=== PATIENT | male | born 1970 | race Caucasian/White ===

== ENCOUNTER 2020-02-26 10:24 | Emergency (ER) | payer MEDICARE, SELFPAY ==
[2020-02-26 10:39] VITALS: BP 137/91; PULSE 95; RESP 15; TEMP 36.4; O2SAT 95; BMI 31.3
--- NOTE | 2020-02-26 10:48 | ED_ITS ---
HPI - Male Genitourinary General: Chief complaint: Urogenital-Male Stated complaint: Urinary issues? Prostate perhaps. Something stuck Time Seen by Provider: 02/26/20 10:37 History of Present Illness: HPI Narrative: Patient is a 49-year-old male who comes to the ED with urogenital complaint. Patient says that for the past week he has pain the head of penis when he urinates and his urine stream sprays everywhere. Patient feels like there is something obstructing the uroflow towards the end of the penis. He says occasionally in the mornings when he wakes up and urinates he will have a little drip of red blood come out from the meatus of penis. He says he is able to urinate and does not have any urine retention issues. His main complaint is the pain that occurs when a urinates and that his urine stream sprays everywhere. Denies any abdominal pain, fever, chills, shortness of breath, chest pain or bowel symptoms. Associated symptoms: Reports dysuria; Deny hematuria, nausea or vomiting Review of Systems Const: Denies: fever(s), chills or fatigue Eyes: Denies: change in vision or eye discomfort ENMT: Denies: throat pain, odynophagia, nasal discharge or nasal congestion Card: Denies: chest pain, palpitations, edema, swelling of feet/ankles, dyspnea on exertion or orthopnea Resp: Denies: dyspnea, productive cough or non-productive cough GI: Denies: abdominal pain, nausea, vomiting, diarrhea, constipation or hematochezia : Reports: difficulty urinating (urine stream sprays everywhere), dysuria, change in urine stream (urine stream sprays everywhere) and other (drip of red blood that comes out of the meatus occasionally in the mornings.); Denies: flank pain or hematuria Musc: Denies: neck pain, back pain or extremity swelling Skin/Breast: Denies: rash or new lesions Neuro: Denies: headache(s), numbness in extremities or weakness in extremities Physical Exam Const: COMMON NORMALS: no acute distress, patient oriented x3 and alert GENERAL APPEARANCE: cooperative and comfortable HENMT: COMMON NORMALS: normocephalic HEAD & SCALP: normocephalic MOUTH: Normal oral and palatal mucosa present THROAT: posterior oropharynx normal and uvula midline Neck/C-Spine: COMMON NORMALS: supple GENERAL: Yes normal visual inspection Resp: COMMON NORMALS: normal respiratory effort, No retractions, No use of accessory muscles and clear to auscultation bilaterally EFFORT & INSPECTION: Yes able to speak in complete sentences, No tachypneic and No labored AUSCULTATION: clear to auscultation bilaterally Cardio: COMMON NORMALS: regular rate, regular rhythm, S1 normal heart sound present, S2 normal heart sound present, No gallops present (Cardio), No clicks present (Cardio), No murmurs present (Cardio) and Peripheral pulses 2+ throughout RATE: regular rate RHYTHM: regular rhythm HEART SOUNDS: S1 normal heart sound present and S2 normal heart sound present PERIPHERAL PULSES: Peripheral pulses 2+ throughout GI: COMMON NORMALS: Normal to inspection, nondistended, normoactive bowel sounds present, Soft to palpation, non-tender and no masses PALPATION: Yes Soft to palpation : COMMON NORMALS: Yes no CVA tenderness BLADDER/KIDNEY EXAM: Yes no CVA tenderness PENIS: normal penis and circumcised MEATUS: no meatla discharge, No Blood at meatus present, stenotic (Meatus opening appears to be closing up, erythema and swelling. Possible scar tissue developing) and Erythema at meatus Back/Pelvis: COMMON NORMALS: no CVA tenderness Extremity: COMMON NORMALS: normal to inspection Neuro: COMMON NORMALS: patient oriented x3 and moves all extremities SENSORIUM/ORIENTATION: Yes alert Skin: GENERAL SKIN EXAM: dry skin Course Consultations: Consultation #1: I contacted Dr. Wilson and told about patient case. He recommended that I put patient on an antibiotic and tell him he can use triple antibiotic ointment cream on the meatus opening. He thinks patient should come in this week to his office and is probably going to need a dilation. Time: 11:51 Vital Signs: Vital signs: Vital Signs Temperature 97.6 F 02/26/20 10:39 Pulse Rate 95 02/26/20 10:39 Respiratory Rate 15 02/26/20 10:39 Blood Pressure 137/91 02/26/20 10:39 Pulse Oximetry 95 02/26/20 10:39 MDM - Male MDM Narrative: Medical decision making narrative: Patient is a 49-year-old male comes to the ED with change in urine stream and dysuria. Exam shows's erythema and swelling at the meatus. It appears that there is scar tissue forming around meatus. UA .negative for UTI. I discussed patient case with Dr. Wilson and he is very familiar with patient. He told me to have patient follow-up with him in his office early next week and to put him on an antibiotic. He also told me to tell patient to put triple antibiotic ointment on head of penis. Placed an order with case management as well to make sure patient get set up with Dr. Wilson early next week. Told patient he can return to ED if he is having any urinary retention problems and told him to take antibiotic and apply triple antibiotic ointment on the head of penis. Patient understood agree with plan. Lab Data: Attestation: I reviewed the patient's lab results. Labs: Lab Results 02/26/20 Range/Units 11:09 Urine Color Yellow (Yellow) Urine Appearance Sl hazy (CLEAR) Urine pH 7.0 (5-7) Ur Specific Gravit y 1.010 (1.005-1.030) Urine Protein Neg (Negative) Urine Glucose (UA) Norm (Normal) Urine Ketones Negative (Negative) Urine Blood 3+ H (Negative) Urine Nitrate Negative (Negative) Urine Bilirubin Neg (Negative) Urine Urobilinogen 1 H (Negative) mg/dL Ur Leukocyte Moon ase Trace H (Negative) Urine RBC 50-80 H (0-2) /hpf Urine WBC 15-25 H (0-5) /hpf Ur Squamous Epith Cells 5-10 H (0-5) /hpf Amorphous Sediment Not Reportable Urine Bacteria Trace (NONE) /hpf Urine Mucus Trace /hpf Discharge Plan Discharge Patient Disposition: Home Clinical Impression: Urethritis Condition: Stable Prescriptions: New Bactrim DS 800-160 mg tablet 1 tab PO BID 5 Days Qty: 10 RF: 0 Discharge Orders: Discharge Order (Routine); Ordered 02/26/20 Ordered By: Stanley Elam Referrals: Javier Diallo MD [Primary Care Provider] - Discharge Diet: Regular Discharge Activity: Resume usual activity Patient Instructions: Urethritis - Male Activity Restrictions/Additional Instructions: Follow-up with medical provider as directed. Case management will call you in the next several days to set up an appointment to see Dr. Wilson early this coming week. Take medications as prescribed. Apply triple antibiotic ointment on head of penis. Return to the ER or your medical provider if condition worsens. Please read and understand discharge instructions. If any questions, please ask. Discharge Date/Time: 02/26/20 12:15 Coding Level of Care Code ED Wheel And Pinion Inspector for Chg Fwd Exam Comprehensive
[2020-02-26 11:39] LABS: Bilirubin Urine Neg (Negative); Blood Urine 3+ (Negative); Glucose Urine UA Norm (Normal); Ketones Urine Negative (Negative); Nitrate Urine Negative (Negative); Protein Urine Neg (Negative); Urine Appearance SL Hazy (CLEAR); Urine Color Yellow (Yellow); Urobilinogen Urine 1 mg/dL (Negative)
[2020-02-26 11:40] LABS: Add Urine Culture? Yes; Bacteria Urine TRACE /hpf; Leukocyte Esterase Urine Trace (Negative); Mucus Urine TRACE /hpf; RBC Urine 50-80 /hpf (0-2); WBC Urine 15-25 /hpf (0-5)
--- NOTE | 2020-02-28 09:35 | DCPLANNER ---
probation manager had message to schedule a follow up appointment for patient with Dr. Wilson. probation manager called the office of Dr. Wilson, spoke with Morena, gave clinic patients information. probation manager was told that patients information would be printed and reviewed. Clinic will call patient with appointment information.
--- NOTE | 2020-02-29 11:35 | DCPLANNER ---
Patient has a follow up appointment scheduled for , March 02, 2020 at 8:[address] Wilson. Clinic will call patient with appointment information.
--- NOTE | 2020-04-28 12:28 | DCPLANNER ---
Patient did not attend appointment scheduled for 03.02.[address] Wilson
== END 2020-02-26 12:15 | disposition home or self-care (01) ==
PROVIDERS: Emergency Provider Physician Assistant; PCP Family Medicine
DX: N34.2 Other urethritis (principal)
CPT/HCPCS: 12345; 81001; 87086; 99281; 99282

== ENCOUNTER 2021-07-07 13:45 | Emergency (ER) | payer OTHER, SELFPAY ==
[2021-07-07 13:57] VITALS: BP 136/81; PULSE 77; RESP 18; TEMP 36.8; O2SAT 97; BMI 31.9
[2021-07-07 14:08] VITALS: BP 136/81; PULSE 77; RESP 18; TEMP 36.8; O2SAT 97
--- NOTE | 2021-07-07 14:34 | ED_ITS ---
HPI - Male Genitourinary General: Chief complaint: Urogenital-Male Stated complaint: Urinary problems Time Seen by Provider: 07/07/21 14:03 History of Present Illness: Patient states he had problems urinating for the last year. Was told he had an STI a year ago and he said this was included on instruction sheet even though there is no laboratory values at substantiate this. Patient said he is not had sex for 6 years. Patient said his urine does shoot all over the place and is just dribbling here for the last weeks, has history of stones. Associated symptoms: Reports hematuria and urinary incontinence; Deny nausea or vomiting Review of Systems Const: Denies: fever(s), chills or body aches Eyes: Denies: eye discomfort ENMT: Denies: throat pain Card: Denies: chest pain Resp: Denies: dyspnea GI: Denies: abdominal pain, nausea or vomiting : Reports: difficulty urinating, urinary frequency, urinary urgency, urinary hesitancy, urinary dribbling, difficulty starting urination, change in urine stream, urinary incontinence and hematuria; Denies: penile discharge, testicular pain, testicular mass or scrotal swelling Skin/Breast: Denies: rash Neuro: Denies: headache(s) Psych: Denies: depression or suicidal ideation PFSH ED PFSH: Family History (Updated 02/29/20 @ 07:38 by JEFFREY Knight) Other CAD (coronary artery disease) CHF (congestive heart failure) Hypertension Stroke Social History (Updated 02/29/20 @ 07:38 by JEFFREY Knight) Smoking and tobacco status: former smoker Alcohol intake: never Adopted: No Caregiver/support person: No Lives independently: No Household members: spouse Marital status: Current occupational status: disabled Physical Exam Const: COMMON NORMALS: no acute distress, patient oriented x3 and alert HENMT: COMMON NORMALS: normocephalic and external ears normal HEAD & SCALP: normocephalic EXTERNAL EAR: Yes external ears normal Eye: COMMON NORMALS: EOMs intact bilaterally Neck/C-Spine: COMMON NORMALS: no JVD Resp: COMMON NORMALS: normal respiratory effort and No use of accessory muscles Cardio: COMMON NORMALS: no JVD GI: INSPECTION: Yes normal to inspection : MALE GROIN/PERINEUM EXAM: No Genital lesions present PENIS: normal penis, uncircumcised, no condylomata, not edematous, not erythematous, no pustules, foreskin retracts, no phimosis, no swelling and No Genital lesions present MEATUS: stenotic Extremity: COMMON NORMALS: normal to inspection and full ROM Neuro: COMMON NORMALS: patient oriented x3 SENSORIUM/ORIENTATION: Yes alert Psych: COMMON NORMALS: mental status grossly normal Skin: COMMON NORMALS: no rashes or lesions noted GENERAL SKIN EXAM: no rashes or lesions noted Course Vital Signs: Vital signs: Vital Signs Temperature 98.2 F 07/07/21 14:08 Pulse Rate 77 07/07/21 14:08 Respiratory Rate 18 07/07/21 14:08 Blood Pressure 136/81 07/07/21 14:08 Pulse Oximetry 97 07/07/21 14:08 MDM - Male Medical Decision Making Urinary meatus scar tissue and/or obstruction. I used a Urojet in the meatus into the penis injecting half the syringe. There was difficulty getting it first. Nurses tried to Villavicencio cath but could not even insert the tip of the catheter in the meatus at all. I did have some difficulty given the tip of the Urojet in but was finally able to get past what possibly with scar tissue. But #16 Villavicencio coud? in with some difficulty given through the possible scar tissue but was finally able to advance the daily and inflated the balloon with 10 mils and did obtain urine. Patient discomfort from the lidocaine and the catheter. Patient has had biopsy of the meatus x2 and possibly scar tissue was from that he has been having difficulty urinating for the last year and is got to the point the last few weeks where he cannot urinate well and he takes about 30 to 45 minutes to empty his bladder. Patient is follow-up Dr. Wilson this week. Discharge Plan Discharge Patient Disposition: Home Clinical Impression: Dysuria, Acute retention of urine, Abnormality of urethral meatus Condition: Stable Prescriptions: New Bactrim DS 800-160 mg tablet 1 tab PO BID 10 Days Qty: 20 0RF Flomax 0.4 mg capsule 0.8 mg PO DAILY Qty: 14 0RF hydrocodone-acetaminophen 5-325 mg tablet 1 tab PO TID PRN (Reason: pain) Qty: 14 0RF Discharge Orders: Discharge ED (Routine); Ordered 07/07/21 Ordered By: Lambert Hernandez Referrals: Javier Diallo MD [Primary Care Provider] - Discharge Diet: Usual diet Discharge Activity: Resume usual activity Patient Instructions: Enlarged Prostate (BPH) (ED), Villavicencio Catheter Placement and Care (ED), Dysuria (ED) Activity Restrictions/Additional Instructions: Follow-up with medical provider as directed. Take medications as prescribed. Return to the ER or your medical provider if condition worsens. Please read and understand discharge instructions. If any questions ask please. Hospital will contact you with appointment for Dr. Wilson's office. Coding Level of Care Code ED Customer Service Leader for Gloria Fwd Exam Comprehensive
[2021-07-07] MEDS: lidocaine 2% Urojet 20 mL TOPICAL (15:03)
[2021-07-07] MEDS: HYDROcodone-acetaminophen 7.5-325 mg Tablet 1 TAB PO (15:10)
[2021-07-07 15:32] LABS: Add Urine Microscopic? YES; Bilirubin Urine Neg (Negative); Blood Urine Neg (Negative); Glucose Urine UA Norm (Normal); Ketones Urine Negative (Negative); Leukocyte Esterase Urine Trace (Negative); Nitrate Urine Negative (Negative); Protein Urine Neg (Negative); Specific Gravity, Urine 1.005 (1.005-1.030); Urine Appearance Clear (CLEAR); Urine Color Yellow (Yellow); Urobilinogen Urine Norm (Negative); pH Urine 7 (5-7)
[2021-07-07 15:34] LABS: Add Urine Culture? No; Bacteria Urine TRACE /hpf; RBC Urine 0-4 /hpf (0-2); Squamous Epithelial Cell Urine RARE /hpf (0-5); WBC Urine 0-4 /hpf (0-5)
--- NOTE | 2021-07-09 12:07 | DCPLANNER ---
Addendum entered by Luciana Collazo 07/26/21 08:39: Patient had a follow up appointment scheduled for 07.10.[address] Wilson - patient did attend appointment. Addendum entered by Luciana Collazo 07/10/21 06:04: Patient has a follow up appointment scheduled for Saturday, July 10, 2021 at 4:[address] Wilson. Clinic will call patient with appointment information. Original Note: production reproduction manager had message to schedule a follow up appointment for patient with Dr. Wilson. production reproduction manager emailed patients information to Michael Berg and Julie in the office of Dr. Wilson. Patients information will be printed and reviewed. Clinic will call patient with appointment information.
== END 2021-07-07 15:16 | disposition home or self-care (01) ==
PROVIDERS: Emergency Provider Nurse Practitioner Family; PCP Family Medicine
DX: R30.0 Dysuria (principal); R33.9 Retention of urine, unspecified; N36.9 Urethral disorder, unspecified; Z87.891 Personal history of nicotine dependence
CPT/HCPCS: 51702; 81001; 99283

== ENCOUNTER 2021-07-09 11:30 | Emergency (ER) | payer OTHER, SELFPAY ==
[2021-07-09 11:36] VITALS: BP 119/71; PULSE 86; RESP 16; TEMP 36.7; O2SAT 96; BMI 32.8
--- NOTE | 2021-07-09 11:53 | ED_ITS ---
HPI - General Adult General: Chief complaint: General Medical Stated complaint: cath problems Time Seen by Provider: 07/09/21 11:41 History of Present Illness: Patient is a 50-year-old male with a history of urethral stricture complicated by occasional urinary dribbling and difficulty voiding was seen initially on 07/07/2021 and had a Porter placed. Since then, patient has noticed that the Porter is slightly discussed. There appears to be urine leaking around the Porter at the urethral meatus that started this orning. Patient came to the emergency room because he could not be seen today in the urology clinic. Patient denies any hematuria/polyuria/suprapubic pain. Patient has no other focal complaints at this time Onset: earlier today Duration:ongoing Location:home Severity:moderate Associated symptoms: Deny chest pain, dyspnea, nausea, rash, palpitations or vomiting Review of Systems Const: Denies: fever(s) or chills Eyes: Denies: change in vision ENMT: Denies: mouth pain Card: Denies: chest pain or palpitations Resp: Denies: dyspnea or non-productive cough GI: Denies: abdominal pain, nausea, vomiting or diarrhea : Reports: other (perifoley urinary leakage); Denies: dysuria Musc: Denies: extremity pain Skin/Breast: Denies: rash or new lesions Neuro: Denies: weakness in extremities Psych: Reports: other (Normal mood) Margarito/Lymph: Denies: easy bruising PFSH ED PFSH: Family History Other CAD (coronary artery disease) CHF (congestive heart failure) Hypertension Stroke Social History Smoking and tobacco status: former smoker Alcohol intake: never Adopted: No Caregiver/support person: No Lives independently: No Household members: spouse Marital status: Current occupational status: disabled Physical Exam Const: COMMON NORMALS: alert HENMT: COMMON NORMALS: atraumatic HEAD & SCALP: atraumatic MOUTH: moist mucous membranes not abnormal Eye: COMMON NORMALS: EOMs intact bilaterally and conjunctivae normal CONJUNCTIVA: Yes conjunctivae normal Neck/C-Spine: COMMON NORMALS: full ROM and supple Resp: COMMON NORMALS: normal respiratory effort and clear to auscultation bilaterally AUSCULTATION: clear to auscultation bilaterally Cardio: COMMON NORMALS: regular rate RATE: regular rate GI: COMMON NORMALS: Soft to palpation and non-tender PALPATION: Yes Soft to palpation : OTHER: 16Fr indwelling porter without any urinary bag leakage Extremity: COMMON NORMALS: full ROM Neuro: SENSORIUM/ORIENTATION: Yes alert MOTOR EXAM: No Abnormal motor strength present and Other motor observations present (no focal motor deficits) Psych: COMMON NORMALS: speech normal SPEECH: Yes normal speech MOOD & AFFECT: Yes euthymic mood Course Vital Signs: Vital signs: Vital Signs Temperature 98.1 F 07/09/21 11:36 Pulse Rate 86 07/09/21 11:36 Respiratory Rate 16 07/09/21 11:36 Blood Pressure 119/71 07/09/21 11:36 Pulse Oximetry 96 07/09/21 11:36 MDM - General Adult Medical Decision Making Patient is a 50-year-old male with history of voiding difficulty who presents the emergency room for evaluation of possible porter dislogement and leakage around the porter at the urethral meatus. It is initial position, Porter was tested and no urine was returned. My nurse deflated the Porter balloon attempted to advance the Porter with good return of urine. Porter was then secured and balloon was reinflated in place. I have discussed case with Madyson from Dr. Wilson's office who will evaluate patient tomorrow for any additional issues with patient's porter. Disposition: Discharge. Patient counseled regarding diagnostic impression, dara atment plan. Patient given ED strict return precautions to return for continuation, worsening, or development of new symptoms. Instructed to f/u w/ Urology regarding symptoms today. Patient verbalized understanding. Discharge Plan Discharge Patient Disposition: Home Clinical Impression: Dislodged Porter catheter Condition: Stable Prescriptions: No Action sulfamethoxazole-trimethoprim [Bactrim DS] 800-160 mg tablet 1 tab PO BID 10 Days Qty: 20 0RF tamsulosin [Flomax] 0.4 mg capsule 0.8 mg PO DAILY Qty: 14 0RF hydrocodone-acetaminophen 5-325 mg tablet 1 tab PO TID PRN (Reason: pain) Qty: 14 0RF Discharge Orders: Discharge ED (Routine); Ordered 07/09/21 Ordered By: Isha Wolfe Referrals: Yoel,Javier A, MD [Primary Care Provider] - Discharge Diet: Advance as tolerated Discharge Activity: Increase activity as tolerated Patient Instructions: Porter Catheter Care Activity Restrictions/Additional Instructions: You have appointment with Dr. Wilson's office tomorrow. Please call his office if you have any questions: Coding Level of Care Code ED Hardware Sales Assistant for Chg Fwd Exam Comprehensive
== END 2021-07-09 12:35 | disposition home or self-care (01) ==
PROVIDERS: Emergency Provider Emergency Medicine; PCP Family Medicine
DX: T83.028A Displacement of other urinary catheter, initial encounter (principal); Z87.891 Personal history of nicotine dependence
CPT/HCPCS: 99282

== ENCOUNTER 2021-08-06 11:47 | Outpatient (CLI) | payer OTHER, SELFPAY ==
--- NOTE | 2021-08-06 12:00 | XRR_ITS ---
PROCEDURE INFORMATION: Exam: XR Abdomen Exam date and time: 08/06/2021 11:59 AM Age: 50 years old Clinical indication: Condition or disease; Other: Urolithiasis; Additional info: Urolithiasis, kub @ [facility] on 08/06/21 @ 12. Appt to follow TECHNIQUE: Imaging protocol: XR of the abdomen. Views: Frontal supine view of the abdomen. 1 View. COMPARISON: CT Abdomen/Pelvis Renal [id number] 03/22/2017 2:37 PM FINDINGS: Gastrointestinal tract: Bowel gas pattern is nonspecific. No mass effect upon the bowel loops. Distal rectal gas. Scattered loops of air filled small bowel none of which are dilated. Moderate amount stool within the large bowel. Organs: No calcifications are seen overlying the renal outlines or the expected course of the right or left ureters. No suspicious calcifications within the pelvis. Bones/joints: No acute process within the osseous structures of the spine or pelvis. Other findings: No appreciable calcifications XR/XR KUB [id number] IMPRESSION: Bowel gas pattern is nonspecific.
== END 2021-08-06 11:48 | disposition home or self-care (01) ==
PROVIDERS: PCP Family Medicine; Visit Provider Urology
DX: N20.9 Urinary calculus, unspecified (principal); N35.919 Unspecified urethral stricture, male, unspecified site
CPT/HCPCS: 74018; 81003

== ENCOUNTER 2022-02-02 09:17 | Emergency (ER) | payer MEDICAID, SELFPAY ==
[2022-02-02] VITALS (7 sets, daily range): BP systolic 116–142; BP diastolic 72–94; PULSE 62; RESP 15; TEMP 36.5; O2SAT 93–99; BMI 34.4
--- NOTE | 2022-02-02 09:47 | ED_ITS ---
HPI - Abdominal Pain General: Chief Complaint: Abdominal Pain Stated Complaint: Abd pains Time Seen by Provider: 02/02/22 09:47 History of Present Illness: ABD pain x 4 days Location: Diffuse Pain scale (0-10): 5 [facility] ED PFSH: Medical History S/P extracorporeal shock wave therapy Urethral meatal stenosis Urolithiasis Surgical History History of repair of ACL Hx of arthroscopic knee surgery Hx of hand surgery Family History Other CAD (coronary artery disease) CHF (congestive heart failure) Hypertension Stroke Social History Smoking and tobacco status: current every day smoker Alcohol intake: never Adopted: No Caregiver/support person: No Lives independently: No Household members: spouse Marital status: Current occupational status: employed and disabled Course ED course: Pt pain did not resolve with protonix. US of gb was not indicative of stones. AST and ALT were normal as well as amylase and lipase. Will proceed with DC with dx of viral gastritis and bentyl prn pain. Vital Signs: Vital signs: Vital Signs Temperature 97.7 F 02/02/22 09:30 Pulse Rate 62 02/02/22 09:30 Respiratory Rate 15 02/02/22 09:30 Blood Pressure 123/84 02/02/22 12:00 Pulse Oximetry 93 02/02/22 11:00 Oxygen Delivery Me thod 02/02/22 09:30 MDM - Abdominal Pain Medical Decision Making Pt has hx of abd pain x 4 days; unable to eat without increased pain. Pt has not any any NVD. He states dark stools but has been taking pepto bismol. Will order ABD pain work up Medical Records Lab Data : 02/02/22 09:55 02/02/22 09:55 Labs/Radiology: Laboratory Results WBC 9.6 10^3/uL (4.0-10.0) 02/02/22 09:55 RBC 5.37 10^6/uL (4.1-5.3) H 02/02/22 09:55 Hgb 15.8 g/dL (11.7-16.6) 02/02/22 09:55 Hct 48.4 % (42.0-52.0) 02/02/22 09:55 MCV 90.1 fl (80-94) 02/02/22 09:55 MCH 29.4 pg (28.0-34.0) 02/02/22 09:55 MCHC 32.6 g/dL (30.0-36.0) 02/02/22 09:55 RDW 13.2 % (12.1-15.1) 02/02/22 09:55 Plt Count 346 10^3/cmm (130-400) 02/02/22 09:55 MPV 9.9 fL (7.4-10.4) 02/02/22 09:55 Neut % (Auto) 51.6 % 02/02/22 09:55 Lymph % (Auto) 33.4 % 02/02/22 09:55 [place] % (Auto) 8.8 % 02/02/22 09:55 Eos % (Auto) 5.1 % 02/02/22 09:55 Baso % (Auto) 0.8 % 02/02/22 09:55 Neut # (Auto) 4.95 10^3/uL (1.8-7.7) 02/02/22 09:55 Lymph # (Auto) 3.2 10^3/uL (0.8-4.8) 02/02/22 09:55 [place] # (Auto) 0.8 10^3/uL (0.2-0.9) 02/02/22 09:55 Eos # (Auto) 0.5 10^3/uL (0.0-0.8) 02/02/22 09:55 Baso # (Auto) 0.1 10^3/uL (0.0-0.1) 02/02/22 09:55 Nucleated RBC % (auto) 0 % 02/02/22 09:55 Nucleated RBCs # 0.0 /100WBC 02/02/22 09:55 Sodium 136 mmol/L (136-145) 02/02/22 09:55 Potassium 4.2 mmol/L (3.5-5.1) 02/02/22 09:55 Chloride 102 mmol/L (98-107) 02/02/22 09:55 Carbon Dioxide 25 mmol/L (22-29) 02/02/22 09:55 Anion Gap 13.2 (5-19) 02/02/22 09:55 BUN 11 mg/dL (6-20) 02/02/22 09:55 Creatinine 0.9 mg/dL (0.7-1.2) 02/02/22 09:55 GFR Calculation 88.3 mL/min (90-130) L 02/02/22 09:55 Glucose 86 mg/dL (65-115) 02/02/22 09:55 Estimat Average Glucose 114 02/02/22 09:55 Hemoglobin A1c 5.6 % (4.0-6.0) 02/02/22 09:55 Calculated Osmolality 281 mOsm/kg (285-295) L 02/02/22 09:55 Calcium 9.5 mg/dL (8.5-10.5) 02/02/22 09:55 Total Bilirubin 0.3 mg/dL (0.15-1.2) 02/02/22 09:55 AST 24 U/L (0-40) 02/02/22 09:55 ALT 16 U/L (0-41) 02/02/22 09:55 Alkaline Phosphatase 110 U/L (40-130) 02/02/22 09:55 Troponin T Gen 5 ng/L 11 ng/L (0-15) 02/02/22 09:55 Total Protein 7.6 g/dL (6.6-8.7) 02/02/22 09:55 Albumin 4.2 g/dL (3.5-5.2) 02/02/22 09:55 Globulin 3.4 g/dL (1.3-4.6) 02/02/22 09:55 Amylase 48 U/L (28-100) 02/02/22 09:55 Lipase 23 U/L (13-60) 02/02/22 09:55 Urine Color Yellow (Yellow) 02/02/22 11:20 Urine Appearance Clear (CLEAR) 02/02/22 11:20 Urine pH 8 (5-7) H 02/02/22 11:20 Ur Specific [place] 1.010 (1.005-1.030) 02/02/22 11:20 Urine Protein Neg (Negative) 02/02/22 11:20 Urine Glucose (UA) Norm (Normal) 02/02/22 11:20 Urine Ketones Negative (Negative) 02/02/22 11:20 Urine Blood Neg (Negative) 02/02/22 11:20 Urine Nitrate Negative (Negative) 02/02/22 11:20 Urine Bilirubin Neg (Negative) 02/02/22 11:20 Prot Sulfosalicylic Acd Negative (Negative) 02/02/22 11:20 Urine Urobilinogen Neg mg/dL (Negative) 02/02/22 11:20 Ur Leukocyte Esterase Negative (Negative) 02/02/22 11:20 Imaging Data CXR: My impression: NAF EKG Data EKG 1: Other EKG comments: Sinus bradycardia with RBBB Discharge Plan Discharge Patient Disposition: Home Clinical Impression: Viral gastritis Condition: Stable Prescriptions: New dicyclomine 10 mg capsule 10 mg PO BID Qty: 10 0RF No Action lubricants Gel 1 ea topical ONCE Qty: 1 0RF sulfamethoxazole-trimethoprim 800-160 mg tablet 1 tab PO BID Qty: 60 1RF Discharge Orders: Discharge ED (Routine); Ordered 02/02/22 Ordered By: Fannie Wei Referrals: Javier Diallo MD [Primary Care Provider] - Discharge Diet: Advance as tolerated Discharge Activity: Increase activity as tolerated Patient Instructions: Opioid Safety, Pain Management Stand Alone Forms: Work/School Release Coding Level of Care Code ED [employer] Architect for Zhannag Gina
[2022-02-02] MEDS: sodium chloride 0.9% 500 ML 999 ML IV (10:18)
[2022-02-02] MEDS: pantoprazole 40 mg SDV IVP (10:19)
[2022-02-02 10:24] LABS: Basophils # 0.1 10^3/uL (0.0-0.1); Basophils % 0.8 %; Eosinophils # 0.5 10^3/uL (0.0-0.8); Eosinophils % 5.1 %; Hematocrit 48.4 % (42.0-52.0); Hemoglobin 15.8 g/dL (11.7-16.6); Lymphocytes # 3.2 10^3/uL (0.8-4.8); Lymphocytes % 33.4 %; Mean Corpuscular HGB Conc 32.6 g/dL (30.0-36.0); Mean Corpuscular Hemoglobin 29.4 pg (28.0-34.0); Mean Corpuscular Volume 90.1 fl (80-94); Mean Platelet Volume 9.9 fL (7.4-10.4); Monocytes # 0.8 10^3/uL (0.2-0.9); Monocytes % 8.8 %; Neutrophils # 4.95 10^3/uL (1.8-7.7); Neutrophils % 51.6 %; Nucleated Red Blood Cells % 0 %; Platelet Count 346 10^3/cmm (130-400); Red Blood Count 5.37 10^6/uL (4.1-5.3); Red Cell Distribution Width 13.2 % (12.1-15.1); White Blood Count 9.6 10^3/uL (4.0-10.0)
--- NOTE | 2022-02-02 10:34 | ECG_ITS ---
[facility] Test Date: 2022-02-02 Pat Name: Gerald Jimenez Department: Room: Gender: Male [employer]: : 1970 Requested By: Fannie Wei Order Number: [id number] Kyle MD: Citlali Cid M.D. Measurements Intervals [place] Rate: 46 P: 55 W[place]: 157 QRS: -13 QRSD: 101 T: 35 QT: 444 QTc: 392 Interpretive Statements SINUS BRADYCARDIA LOW QRS VOLTAGE IN PRECORDIAL LEADS [QRS DEFLECTION < 1.0 mV IN CHEST LEADS] INCOMPLETE RIGHT BUNDLE BRANCH BLOCK [90+ ms QRS DURATION, TERMINAL R IN V1/V2, 40+ ms S IN I/aVL/V4/V5/V6] Compared to ECG 09/15/2014 23:34:00 Low QRS voltage now present Electronically Signed On 02-02-2022 19:31:42 CDT by Citlali Cid M.D. [id number]
[2022-02-02 10:40] LABS: Alanine Aminotransferase 16 U/L (0-41); Albumin Level 4.2 g/dL (3.5-5.2); Alkaline Phosphatase 110 U/L (40-130); Amylase 48 U/L (28-100); Anion Gap 13.2 (5-19); Aspartate Amino Transferase 24 U/L (0-40); Blood Urea Nitrogen 11 mg/dL (6-20); Calcium 9.5 mg/dL (8.5-10.5); Carbon Dioxide 25 mmol/L (22-29); Chloride 102 mmol/L (98-107); Globulin 3.4 g/dL (1.3-4.6); Glomerular Filtration Rate 88.3 mL/min (90-130); Glucose 86 mg/dL (65-115); Lipase 23 U/L (13-60); Osmolality Calculated 281 mOsm/kg (285-295); Potassium 4.2 mmol/L (3.5-5.1); Sodium 136 mmol/L (136-145); Total Bilirubin 0.3 mg/dL (0.15-1.2); Total Protein 7.6 g/dL (6.6-8.7)
[2022-02-02 11:25] LABS: Estmated Average Glucose 114; Hemoglobin A1C 5.6 % (4.0-6.0)
--- NOTE | 2022-02-02 11:26 | USR_ITS ---
PROCEDURE INFORMATION: Exam: US Abdomen, Limited; Right Upper Quadrant Exam date and time: 02/02/2022 11:56 AM Age: 51 years old Clinical indication: Abdominal pain; Acute TECHNIQUE: Imaging protocol: Real time ultrasound of the abdomen with image documentation. Limited exam focused on the right upper quadrant. COMPARISON: US gall bladder [id number] 02/06/2015 2:18 PM FINDINGS: Technically difficult study secondary to overlying bowel gas. Liver: Normal. No masses. Gallbladder: Normal. No gallstones. There is no gallbladder wall thickening. Biliary ducts: Normal. No stones. No dilation. Pancreas: Visualized pancreas is unremarkable. Right kidney: Normal. No mass. No hydronephrosis. US/US gall bladder [id number] IMPRESSION: No acute findings.
--- NOTE | 2022-02-02 11:30 | XRR_ITS ---
PROCEDURE INFORMATION: Exam: XR Chest Exam date and time: 02/02/2022 11:43 AM Age: 51 years old Clinical indication: Pain; Chest pressure; Additional info: Radiating pain TECHNIQUE: Imaging protocol: Radiologic exam of the chest. Views: 1 view. COMPARISON: CT chest abdomen w con* 11/23/2016 7:53 PM FINDINGS: Lungs: Unremarkable. No consolidation. Pleural spaces: Unremarkable. No pleural effusion. No pneumothorax. Heart/Mediastinum: Unremarkable. No cardiomegaly. Bones/joints: Unremarkable. XR/XR chest 1V portable [id number] IMPRESSION: No acute findings.
[2022-02-02] MEDS: ketorolac 30 mg/mL INJ 15 MG IVP (11:39)
[2022-02-02 11:41] LABS: Add Urine Microscopic? NO; Charge for UA Resulting for Rev
[2022-02-02 11:48] LABS: Troponin T (5th) Once 11 ng/L (0-15)
[2022-02-02 11:49] LABS: Bilirubin Urine Neg (Negative); Blood Urine Neg (Negative); Glucose Urine UA Norm (Normal); Ketones Urine Negative (Negative); Leukocyte Esterase Urine Negative (Negative); Nitrate Urine Negative (Negative); Protein Urine Neg (Negative); Sulfosalicylic Acid Urine Negative (Negative); Urine Appearance Clear (CLEAR); Urine Color Yellow (Yellow); Urobilinogen Urine Neg (Negative); pH Urine 8 (5-7)
== END 2022-02-02 12:30 | disposition home or self-care (01) ==
PROVIDERS: Emergency Provider Nurse Practitioner Family; PCP Family Medicine
DX: A08.4 Viral intestinal infection, unspecified (principal); F17.210 Nicotine dependence, cigarettes, uncomplicated
CPT/HCPCS: 71045; 76705; 80053; 81003; 82150; 83036; 83690; 84484; 85025; 93005; 96361; 96374; 96375; 99285; C9113; J1885; J7040